=== PATIENT | male | born 1985 | race Caucasian/White ===

== ENCOUNTER 2018-10-13 09:25 | Emergency (ER) | payer OTHER ==
[~2018-10-13] VITALS: Ht 190.5 cm; Wt 140.6 kg
[~2018-10-13 09:25] MED LIST: CIPROFLOXACIN500 M1 PO; FLAGYL500 MG PO; NORCO 5-325 TA1 EACH PO; PHENERGAN 25 MG25 M1 PO; PROZAC40 MG PO
[2018-10-13 10:09] LABS: ABSOLUTE NEUTROPHILS 4.8 thou/uL (1.4-8.2); BASOPHILS 0.5 % (0.0-2.0); EOSINOPHILS 0.7 % (0.0-3.0); HEMATOCRIT 39.3 % (42.0-52.0); HEMOGLOBIN 13.5 gm/dL (14.0-18.0); LYMPHOCYTES 32.6 % (24.0-44.0); MCH 32.4 pg (26.0-34.0); MCHC 34.2 g/dL (28.0-37.0); MCV 94.8 fL (80.0-100.0); PLATELET COUNT 277 thou/uL (150-400); POLYS 61.2 % (36.0-66.0); RBC 4.15 mil/uL (4.50-6.00); RDW 12.8 % (10.5-14.5); WBC 7.9 thou/uL (4.0-11.0)
[2018-10-13 10:17] LABS: ANION GAP 8 mmol/L (7-16); BUN 11 mg/dL (7-18); CALCIUM 9.6 mg/dL (8.5-10.1); CHLORIDE 104 mmol/L (98-107); CO2 30 mmol/L (21-32); CREATININE 1.2 mg/dL (0.7-1.3); GLUCOSE 108 mg/dL (74-106); POTASSIUM 4.2 mmol/L (3.5-5.1); SODIUM 142 mmol/L (136-145)
[2018-10-13 10:27] LABS: TROPONIN-I <0.06 ng/mL (<0.06)
[2018-10-13 10:31] LABS: INR 2.3; PROTIME 23.4 Seconds (9.3-11.4)
[2018-10-13 10:32] LABS: D-DIMER < 0.19 ug/mLFEU (0.19-0.50)
[2018-10-13 11:30] VITALS: BP 120/68
--- NOTE | 2018-10-13 12:23 | EKG ---
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 Center: 12 : 1985 Requested By: Choco Mcmanus Order Number: [id number] MD: Jimbo Rios Measurements Intervals [place] Rate: 85 P: 45 NV: 128 QRS: 26 QRSD: 92 T: 30 QT: 367 QTc: 437 Interpretive Statements Sinus rhythm Baseline wander Nonspecific ST-T wave abnormalities No previous ECG available for comparison Electronically Signed On 10-13-2018 12:23:18 [employer]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
== END 2018-10-13 11:35 | disposition home or self-care (01) ==
LOC: ER 09:25
PROVIDERS: Emergency Medicine
DX: R51 Headache (principal); I10 Essential (primary) hypertension; K58.9 Irritable bowel syndrome, unspecified; F98.8 Other specified behavioral and emotional disorders with onset usually occurring in childhood and adolescence; F17.220 Nicotine dependence, chewing tobacco, uncomplicated; Z86.711 Personal history of pulmonary embolism